=== PATIENT | female | born 1970 | race Caucasian/White ===

== ENCOUNTER 2020-07-26 08:38 | Day surgery (SDC) | payer OTHER | END 2020-07-27 03:19 | disposition home or self-care (01) | LOC: CIR.AMB 08:38 | PROVIDERS: ATTEND Surgery | DX: D05.12 Intraductal carcinoma in situ of left breast (principal); C77.3 Secondary and unspecified malignant neoplasm of axilla and upper limb lymph nodes; N62 Hypertrophy of breast; Z20.822 Contact with and (suspected) exposure to COVID-19 ==